=== PATIENT | male | born 1950 | race Caucasian/White ===

== ENCOUNTER 2018-02-02 08:59 | Day surgery (SDC) | payer MEDICARE, BC ==
[~2018-02-02] VITALS: Ht 190.5 cm; Wt 131.5 kg
[~2018-02-02 08:59] MED LIST: AMLO5 PO; ASPI81CH PO; ATEN50 PO; CELE200 PO; CHOL10002 PO; DABI150C PO; FENT50TP TOP; FURO40 PO; Fish Oil 10001000 MG PO; LEVSOD75 PO; LOSARTAN POTAS100 MG PO; PRAV20 PO; RANI150 PO; TESTONE CI200 MG/1 M IM; TOPI100 PO; Voltaren100 GM TOP; WAL-SOM25 M1 PO
[2018-02-02] MEDS ORDERED: OXYC5 PO (11:12)
[2018-02-03 04:03] LABS: BASOPHILS ABSOLUTE AUTO 0.02 K/mm3 (0.00-0.23); BASOPHILS PERCENT AUTO 0 % (0-2); EOSINOPHILS ABSOLUTE AUTO 0.01 K/mm3 (0.00-0.68); EOSINOPHILS PERCENT AUTO 0 % (0-6); Hematocrit 39.3 % (37.0-53.0); Hemoglobin 12.4 g/dL (13.5-17.5); IMMATURE GRAN ABSOLUTE AUTO 0.05 K/mm3 (0.00-0.10); IMMATURE GRAN PERCENT AUTO 1 % (0-1); LYMPHOCYTES ABSOLUTE AUTO 1.29 K/mm3 (0.84-5.20); LYMPHOCYTES PERCENT AUTO 12 % (21-46); MONOCYTES PERCENT AUTO 10 % (4-13); Mean Corpuscular HGB 28.2 pg (26.0-34.0); Mean Corpuscular HGB Conc 31.6 g/dL (31.5-36.5); Mean Corpuscular Volume 89 fL (80-100); Mean Platelet Volume 9.5 fL (9.1-12.4); NEUTROPHILS ABSOLUTE AUTO 8.08 K/mm3 (1.96-9.15); NEUTROPHILS PERCENT AUTO 77 % (41-73); Platelet Count 180 K/mm3 (150-400); RDW Coefficient Variation 13.8 % (11.7-14.2); RDW Standard Deviation 45.1 fL (35.1-46.3); White Blood Cell Count 10.45 K/mm3 (4.00-11.30)
[2018-02-03 04:25] LABS: Bun/Creatinine Ratio 25.9 (12.0-20.0); Calcium, Blood 8.3 mg/dL (8.5-10.1); Creatinine, Blood 1.43 mg/dL (0.60-1.20); Potassium, Blood 3.4 mmol/L (3.5-5.5)
[2018-02-03] MEDS ORDERED: Percocet 7.5-31 EACH PO (15:08)
== END 2018-02-03 15:55 | disposition home or self-care (01) ==
LOC: ORSCMMR 08:59 → SURS 08:59 → PRE IP 08:59 → SURS 08:59 → PRE IP 12:30 → EDSTATUS 12:30 → SURS 12:37 → ORSCMMR 02-03 15:55 → SURS 02-03 15:55
PROVIDERS: Orthopaedic Surgery
PROC: 0SRD0J9 Replacement of Left Knee Joint with Synthetic Substitute, Cemented, Open Approach (ICD-10-PCS; principal; 2018-02-02 12:30)
DX: M17.12 Unilateral primary osteoarthritis, left knee (principal); Z01.812 Encounter for preprocedural laboratory examination; Z01.818 Encounter for other preprocedural examination; I10 Essential (primary) hypertension; I48.91 Unspecified atrial fibrillation; I25.2 Old myocardial infarction; J44.9 Chronic obstructive pulmonary disease, unspecified; E03.9 Hypothyroidism, unspecified; E66.01 Morbid (severe) obesity due to excess calories; Z68.36 Body mass index [BMI] 36.0-36.9, adult; Z79.899 Other long term (current) drug therapy; Z79.82 Long term (current) use of aspirin; Z87.891 Personal history of nicotine dependence
CPT/HCPCS: 36415; 73560-LT; 80048; 83735; 85025; 86850; 86900; 86901; 88300; 97110; 97116; 97161; 97530; C1713; C1776; G8978; G8979; J0171; J0330; J0690; J0735; J1100; J1885; J2250; J2370; J2405; J2710; J2795; J3010; J3370; J7120; Q0163

== ENCOUNTER 2018-02-11 11:35 | Emergency (ER) | payer MEDICARE, BC ==
[~2018-02-11] VITALS: Ht 190.5 cm; Wt 127.0 kg
[~2018-02-11 11:35] MED LIST changes: +OXYC5 PO; +Percocet 7.5-31 EACH PO
[2018-02-11 12:12] LABS: BASOPHILS ABSOLUTE AUTO 0.05 K/mm3 (0.00-0.23); BASOPHILS PERCENT AUTO 1 % (0-2); EOSINOPHILS PERCENT AUTO 1 % (0-6); Hematocrit 37.8 % (37.0-53.0); Hemoglobin 12.1 g/dL (13.5-17.5); IMMATURE GRAN ABSOLUTE AUTO 0.07 K/mm3 (0.00-0.10); IMMATURE GRAN PERCENT AUTO 1 % (0-1); LYMPHOCYTES ABSOLUTE AUTO 0.95 K/mm3 (0.84-5.20); LYMPHOCYTES PERCENT AUTO 9 % (21-46); MONOCYTES ABSOLUTE AUTO 0.88 K/mm3 (0.16-1.47); MONOCYTES PERCENT AUTO 9 % (4-13); Mean Corpuscular HGB 29.5 pg (26.0-34.0); Mean Platelet Volume 9.3 fL (9.1-12.4); NEUTROPHILS ABSOLUTE AUTO 8.15 K/mm3 (1.96-9.15); NEUTROPHILS PERCENT AUTO 80 % (41-73); Platelet Count 360 K/mm3 (150-400); RDW Coefficient Variation 13.7 % (11.7-14.2)
[2018-02-11 12:17] LABS: Mean Corpuscular Volume 92 fL (80-100)
[2018-02-11 12:29] LABS: Alanine Aminotransfer (ALT/SGP 47 U/L (12-78); Albumin, Blood 2.8 g/dL (3.4-5.0); Albumin/Globulin Ratio 0.6 (0.8-1.8); Alk Phos 92 U/L (50-136); Anion Gap 7 mmol/L (6-16); Aspartate Aminotrans (AST/SGOT 36 U/L (12-37); Bilirubin, Total 0.9 mg/dL (0.1-1.0); Blood Urea Nitrogen 27 mg/dL (8-24); Bun/Creatinine Ratio 23.5 (12.0-20.0); CO2, Blood 23 mmol/L (21-32); Calcium, Blood 8.8 mg/dL (8.5-10.1); Chloride, Blood 105 mmol/L (98-108); Creatinine, Blood 1.15 mg/dL (0.60-1.20); Globulin, Blood 4.6 g/dL (2.2-4.0); Glomerular Filtration Rate >60 (60-); Glucose, Blood 100 mg/dL (70-99); Potassium, Blood 4.2 mmol/L (3.5-5.5); Sodium, Blood 135 mmol/L (136-145); Total Protein, Blood 7.4 g/dL (6.4-8.2); Troponin I <0.015 ng/mL (0.000-0.040)
[2018-02-11] MEDS ORDERED: Cleocin HCl300 MG PO (14:20)
== END 2018-02-11 14:50 | disposition home or self-care (01) ==
LOC: ER 11:35
PROVIDERS: Physician Assistant
DX: R55 Syncope and collapse (principal); I95.9 Hypotension, unspecified; I10 Essential (primary) hypertension; E03.9 Hypothyroidism, unspecified; I25.10 Atherosclerotic heart disease of native coronary artery without angina pectoris; E78.00 Pure hypercholesterolemia, unspecified; I48.91 Unspecified atrial fibrillation; Z87.891 Personal history of nicotine dependence; Z88.8 Allergy status to other drugs, medicaments and biological substances; Z91.09 Other allergy status, other than to drugs and biological substances; Z79.899 Other long term (current) drug therapy; Z79.82 Long term (current) use of aspirin
CPT/HCPCS: 71046; 80053; 84484; 85025; 85651; 86140; 93005; 93010; 96360; 99284; J7030

== ENCOUNTER 2021-02-14 12:48 | Emergency (ER) | payer OTHER, MEDICARE, BC ==
[~2021-02-14] VITALS: Ht 190.5 cm; Wt 103.4 kg
[~2021-02-14 12:48] MED LIST changes: +Cleocin HCl300 MG PO
[2021-02-14] MEDS ORDERED: FURO20 PO (13:34)
[2021-02-14] MEDS ORDERED: AMLO10 PO (13:34)
[2021-02-14] MEDS ORDERED: DABI150C (13:35)
[2021-02-14] MEDS ORDERED: CELE200 PO (13:35)
[2021-02-14] MEDS ORDERED: Aspir 8181 MG PO (13:35)
[2021-02-14] MEDS ORDERED: LOSA50 PO (13:35)
[2021-02-14] MEDS ORDERED: FISH OIL-VIT D1 EACH PO (13:36)
[2021-02-14] MEDS ORDERED: PRAV20 PO (13:36)
[2021-02-14] MEDS ORDERED: LEVSOD75 PO (13:36)
[2021-02-14] MEDS ORDERED: PEPCID20 MG PO (13:37)
[2021-02-14] MEDS ORDERED: VITAMIN D31000 UNI1 PO (13:38)
[2021-02-14] MEDS ORDERED: TESTOSTERONE200 MG (13:39)
== END 2021-02-14 16:30 | disposition home or self-care (01) ==
LOC: ER 12:48
DX: S00.83XA Contusion of other part of head, initial encounter (principal); I48.91 Unspecified atrial fibrillation; I10 Essential (primary) hypertension; E03.9 Hypothyroidism, unspecified; Z87.891 Personal history of nicotine dependence; Z79.899 Other long term (current) drug therapy; Z91.041 Radiographic dye allergy status; Z91.09 Other allergy status, other than to drugs and biological substances; W01.198A Fall on same level from slipping, tripping and stumbling with subsequent striking against other object, initial encounter
CPT/HCPCS: 70450; 72125; 90471; 90714; 96374; 96375; 99284-25; J1170; J1200; J2765

== ENCOUNTER 2021-08-07 10:20 | Day surgery (SDC) | payer MEDICARE, BC ==
[~2021-08-07] VITALS: Ht 190.5 cm; Wt 147.4 kg
[~2021-08-07 10:20] MED LIST changes: +AMLO10 PO; +Aspir 8181 MG PO; +DABI150C; +FISH OIL-VIT D1 EACH PO; +FURO20 PO; +LOSA50 PO; +PEPCID20 MG PO; +TESTOSTERONE200 MG; +VITAMIN D31000 UNI1 PO
--- NOTE | 2021-08-07 11:26 | NUR ---
08/07/21 1126 Carmen Mancia TETRACAINE DROPS PLACED IN RT EYE AT [address] ORDERS. PLEDGET PLACED IN RT EYE AT [address] ORDERS.
== END 2021-08-07 12:59 | disposition home or self-care (01) ==
LOC: ORSCSDS 10:20
PROVIDERS: Ophthalmology
PROC: 08RJ3JZ Replacement of Right Lens with Synthetic Substitute, Percutaneous Approach (ICD-10-PCS; principal; 2021-08-07 11:30)
DX: H25.11 Age-related nuclear cataract, right eye (principal); I25.10 Atherosclerotic heart disease of native coronary artery without angina pectoris; I48.91 Unspecified atrial fibrillation; I10 Essential (primary) hypertension; G47.33 Obstructive sleep apnea (adult) (pediatric); E03.9 Hypothyroidism, unspecified; E11.9 Type 2 diabetes mellitus without complications; K21.9 Gastro-esophageal reflux disease without esophagitis; Z79.899 Other long term (current) drug therapy; Z79.82 Long term (current) use of aspirin; E66.01 Morbid (severe) obesity due to excess calories; Z68.41 Body mass index [BMI] 40.0-44.9, adult
CPT/HCPCS: J2001; J2250; J3010; J3301; V2632